=== PATIENT | female | born 1965 | race Caucasian/White ===

== ENCOUNTER → 2023-12-04 07:43 | Outpatient (REF) | payer BC, SELFPAY | LOC: HWWDC 07:43 | PROVIDERS: ATTENDING PHYSICIAN Nurse Practitioner Family | DX: Z12.31 Encounter for screening mammogram for malignant neoplasm of breast (principal) | CPT/HCPCS: 77063; 77067 ==

== ENCOUNTER → 2024-12-24 06:41 | Outpatient (REF) | payer OTHER, SELFPAY | LOC: HWWDC 06:41 | PROVIDERS: ATTENDING PHYSICIAN Nurse Practitioner Family | DX: Z12.31 Encounter for screening mammogram for malignant neoplasm of breast (principal) | CPT/HCPCS: 77063; 77067 ==

== ENCOUNTER → 2025-04-21 09:00 | Outpatient (REF) | payer OTHER, SELFPAY | LOC: HWRAD 09:00 | PROVIDERS: ATTENDING PHYSICIAN Specialist; FAMILY PHYSICIAN Nurse Practitioner Family | DX: R31.29 Other microscopic hematuria (principal); N20.0 Calculus of kidney | CPT/HCPCS: 74018; 76770 ==

== ENCOUNTER → 2025-09-14 09:01 | Outpatient (REF) | payer BC, SELFPAY | LOC: WDC 09:01 | PROVIDERS: ATTENDING PHYSICIAN Nurse Practitioner Family | DX: N64.4 Mastodynia (principal) | CPT/HCPCS: 76642; 77061; 77065 ==